=== PATIENT | male | born 1990 | race African-American/Black ===

== ENCOUNTER 2017-01-22 20:59 | Emergency (ER) | payer SELFPAY ==
[~2017-01-22] VITALS: Ht 167.6 cm; Wt 78.8 kg
[~2017-01-22 20:59] MED LIST: NAPROSYN500 MG PO; NOHOMEMEDS
[2017-01-22] MEDS ORDERED: IMODIUM A-D2 M2 PO (21:37)
[2017-01-22 21:40] VITALS: BP 118/86
== END 2017-01-22 21:46 | disposition home or self-care (01) ==
LOC: EME 20:59
DX: A08.4 Viral intestinal infection, unspecified (principal); F17.200 Nicotine dependence, unspecified, uncomplicated
CPT/HCPCS: 99281; 99283